=== PATIENT | female | born 1950 | race Hispanic/Latino ===

== ENCOUNTER 2018-12-26 23:12 | Emergency (ER) | payer MEDICARE, OTHER ==
[~2018-12-26 23:12] MED LIST: CARB1TAB23 PO; LEVO100T12 PO; METF500T7 PO; PRAV20TA4 PO; ROPINIROLE PO
[2018-12-26] MEDS ORDERED: OCTYL 2-CYANOACRYLATE 1 EACH TP ONE (23:45)
== END 2018-12-27 00:36 | disposition home or self-care (01) ==
LOC: EDH 23:12
DX: S01.01XA Laceration without foreign body of scalp, initial encounter (principal); E11.9 Type 2 diabetes mellitus without complications; E78.5 Hyperlipidemia, unspecified; E07.9 Disorder of thyroid, unspecified; Z88.6 Allergy status to analgesic agent; Z79.84 Long term (current) use of oral hypoglycemic drugs; W05.0XXA Fall from non-moving wheelchair, initial encounter; Y93.89 Activity, other specified; Y92.89 Other specified places as the place of occurrence of the external cause; Y99.8 Other external cause status
CPT/HCPCS: 12001; 70450

== ENCOUNTER 2019-03-16 17:08 | Observation (INO) | payer OTHER ==
[~2019-03-16] VITALS: Ht 160 cm; Wt 82.1 kg
[~2019-03-16 17:08] MED LIST changes: +METF500T20 PO; -METF500T7 PO
[2019-03-16] MEDS ORDERED: SODIUM CHLORIDE 0.9% 1000ML 2,000 ML IV ONE (17:47)
[2019-03-16 18:15] LABS: BASOPHILS % (AUTO) 0.3 % (0.0-5.0); HEMATOCRIT 37.5 % (36-48); LYMPHOCYTES % (AUTO) 4.3 % (21.0-51.0); MEAN CORPUSCULAR HEMOGLOBIN 28.7 pg (27.0-33.0); MEAN CORPUSCULAR HGB CONC 32.9 g/dL (32.0-36.0); MEAN CORPUSCULAR VOLUME 87.3 fL (79-99); MONOCYTES % (AUTO) 4.1 % (3.0-13.0); NEUTROPHILS % (AUTO) 91.3 % (40.0-77.0); PLATELET COUNT (AUTO) 240 K/uL (130-400); RED CELL DISTRIBUTION WIDTH 13.9 % (11.0-15.5); WHITE BLOOD COUNT (AUTO) 11.3 K/uL (4.8-10.8)
[2019-03-16 18:26] LABS: CARBON DIOXIDE 22 mmol/L (21-32); CHLORIDE 100 mmol/L (101-111); CREATININE 0.9 mg/dL (0.5-1.5); GLOMERULAR FILTR. RATE CALC 66 mL/min (>60); GLUCOSE,RANDOM 194 mg/dL (70-105); POTASSIUM 3.6 mmol/L (3.5-5.1); SODIUM SERUM 136 mmol/L (136-145); UREA NITROGEN, BLOOD 22 mg/dL (7-18)
[2019-03-16 18:27] LABS: INR 0.98 (0.85-1.15); PARTIAL THROMBOPLASTIN TIME 27.4 SEC (26.3-35.5); PROTHROMBIN TIME 10.3 SEC (9.6-11.6)
[2019-03-16 18:38] LABS: ALANINE AMINOTRANSFERASE 18 U/L (12-78); ALBUMIN 3.2 g/dL (3.5-5.0); ASPARTATE AMINOTRANSFERASE 15 U/L (10-37); BILIRUBIN,TOTAL 0.5 mg/dL (0.2-1.0); CREATINE KINASE, TOTAL 35 U/L (21-232); MYOGLOBIN 38 ng/mL (10-92); TOTAL PROTEIN, SERUM 6.7 g/dL (6.0-8.3); TROPONIN I < 0.04 ng/mL (0.00-0.06)
[2019-03-16] MEDS ORDERED: IOHEXOL-350 75 ML VIAL IV ONE (19:05)
[2019-03-16] MEDS ORDERED: SODIUM CHLORIDE 0.9% 50 ML IV ONE (19:27)
[2019-03-16] MEDS ORDERED: CEFTRIAXONE SODIUM 1 GM ONE (19:27)
[2019-03-16 19:58] LABS: APPEARANCE,URINE Clear (CLEAR); BILIRUBIN,URINE Negative (NEGATIVE); COLOR,URINE Yellow (YELLOW); GLUCOSE, URINE (UA) Negative (NEGATIVE); KETONES,URINE Negative (NEGATIVE); LEUKOCYTE ESTERASE ,URINE Moderate (NEGATIVE); NITRATE,URINE Negative (NEGATIVE); OCCULT BLOOD,URINE Negative (NEGATIVE); PROTEIN,URINE Negative (NEGATIVE); UROBILINOGEN,URINE 0.2 mg/dL (0.2-1.0)
[2019-03-16 20:09] LABS: BACTERIA,URINE Few /HPF (None Seen); MUCUS,URINE Few LPF (None Seen)
[2019-03-16] MEDS: ZOSYN 3.375GM+NS 50ML 50 ML IV SCH (21:34)
[2019-03-16] MEDS ORDERED: VANCOMYCIN 1.5 GM in SODIUM CHLORIDE 0.9% 250 ML IV SCH (21:45)
[2019-03-16] MEDS ORDERED: VANCOMYCIN 1GM+NS 250ML 250 ML IV SCH (21:45)
[2019-03-16] MEDS: SODIUM CHLORIDE 0.9% 1000ML 1,000 ML IV SCH (21:45)
[2019-03-16] MEDS ORDERED: VANCOMYCIN PROTOCOL PER PHARMACY IV SCH (21:45)
[2019-03-16] MEDS ORDERED: GLUCAGON 1MG KIT 1 MG ML IM PRN (21:45)
[2019-03-16] MEDS ORDERED: DEXTROSE 50%-WATER 50 ML DISP.SYRIN IV PRN (21:45)
[2019-03-16] MEDS ORDERED: SODIUM CHLORIDE 0.9% 1000ML 1,000 ML IV ONE (22:37)
[2019-03-16] MEDS ORDERED: ZOSYN 3.375GM+NS 50ML 50 ML IV ONE (22:53)
[2019-03-17] MEDS ORDERED: SODIUM CHLORIDE 0.9% 1000ML 1,000 ML IV ONE ×2 (01:27→09:52)
[2019-03-17] MEDS ORDERED: FLUMAZENIL 0.1MG/1ML 5ML VIAL IV ONE (03:46)
[2019-03-17] MEDS: ZOSYN 3.375GM+NS 50ML 50 ML IV SCH ×3 (05:00→21:12)
[2019-03-17 05:45] LABS: BASOPHILS % (AUTO) 0.3 % (0.0-5.0); EOSINOPHILS % (AUTO) 0.1 % (0.0-8.0); HEMATOCRIT 34.4 % (36-48); LYMPHOCYTES % (AUTO) 16.7 % (21.0-51.0); MEAN CORPUSCULAR HEMOGLOBIN 29.3 pg (27.0-33.0); MEAN CORPUSCULAR HGB CONC 33.7 g/dL (32.0-36.0); MONOCYTES % (AUTO) 8.8 % (3.0-13.0); NEUTROPHILS % (AUTO) 74.1 % (40.0-77.0); PLATELET COUNT (AUTO) 198 K/uL (130-400); RED BLOOD CELL COUNT(AUTO) 3.95 MIL/uL (4.00-5.50); RED CELL DISTRIBUTION WIDTH 13.8 % (11.0-15.5); WHITE BLOOD COUNT (AUTO) 5.9 K/uL (4.8-10.8)
[2019-03-17 05:56] LABS: CREATININE 0.7 mg/dL (0.5-1.5); MAGNESIUM 1.7 mg/dL (1.80-2.40); POTASSIUM 3.5 mmol/L (3.5-5.1)
[2019-03-17] MEDS ORDERED: ACETAMINOPHEN EXTRA STRENGTH 500 MG TABLET ONE (06:54)
[2019-03-17] MEDS ORDERED: ZOSYN 3.375GM+NS 50ML 50 ML IV ONE (07:56)
[2019-03-17] MEDS ORDERED: MAGNESIUM 2GM PREMIX 50ML 100 ML IV ONE (09:49)
--- NOTE | 2019-03-17 10:30 | NUR ---
DCP:HOME Sw met with pt and daughter Kim Guzmán [phone], whom lives with the pt. Pt has provider thru [employer] 36hrs a week to assist with ADLS, home management, meal prep and transport. pt has w/c and shower chair, no HH. PCP is Dr Irving and [facility] is pharm of choice. Denies dc needs. Plan is home Addendum: 03/17/19 at 1032 by JORDYN GARY SS Amended: Links added.
[2019-03-17 14:20] VITALS: BP 140/81
[2019-03-17 16:00] VITALS: BP 143/81
[2019-03-17] MEDS: INSULIN R PO SS1 SQ SCH ×4 (16:13→21:10)
[2019-03-17] MEDS: SODIUM CHLORIDE 0.9% 1000ML 1,000 ML IV SCH (17:45)
[2019-03-17] MEDS ORDERED: VANCOMYCIN 1.5 GM in SODIUM CHLORIDE 0.9% 250 ML IV SCH (18:00)
[2019-03-17] MEDS ORDERED: COMPOUND IV REFRIGERATED 1 EACH IVSOLN MISC PRN (18:15)
[2019-03-17 19:35] VITALS: BP 143/74
[2019-03-17] MEDS ORDERED: HYDR-3421 PO (20:01)
[2019-03-17] MEDS ORDERED: MELA5CAP PO (20:02)
[2019-03-17] MEDS ORDERED: GLIP5TAB11 PO (20:02)
[2019-03-17] MEDS: MELATONIN 5 MG PO SCH (21:00)
[2019-03-17] MEDS: SIMVASTATIN 20 MG TABLET PO SCH (21:12)
[2019-03-17] MEDS: HYDROXYZINE HCL 25 MG TABLET PO SCH (21:12)
[2019-03-17] MEDS: METFORMIN HCL 500 MG TAB.SR.24H PO SCH (21:15)
[2019-03-17 23:35] VITALS: BP 141/79
[2019-03-18] VITALS (7 sets, daily range): BP systolic 135–148; BP diastolic 63–80
[2019-03-18] MEDS: SODIUM CHLORIDE 0.9% 1000ML 1,000 ML IV SCH ×2 (02:20→13:45)
[2019-03-18] MEDS ORDERED: MAGNESIUM 2GM PREMIX 50ML 50 ML IV PRN (02:30)
[2019-03-18] MEDS ORDERED: POTASSIUM CHLORIDE 20MEQ/100ML 100 ML IV PRN (02:30)
[2019-03-18] MEDS ORDERED: LIDOCAINE HCL-MPF 1% 2ML VIAL IV PRN (02:30)
[2019-03-18] MEDS ORDERED: POTASSIUM CHLORIDE 10% ELIXIR 20 MEQ/15 ML UDCUP PO PRN (02:30)
[2019-03-18] MEDS: ZOSYN 3.375GM+NS 50ML 50 ML IV SCH ×3 (04:49→21:10)
[2019-03-18 05:34] LABS: BASOPHILS % (AUTO) 0.3 % (0.0-5.0); EOSINOPHILS % (AUTO) 0.3 % (0.0-8.0); HEMATOCRIT 32.3 % (36-48); LYMPHOCYTES % (AUTO) 27.8 % (21.0-51.0); MEAN CORPUSCULAR HEMOGLOBIN 29.4 pg (27.0-33.0); MEAN CORPUSCULAR HGB CONC 33.8 g/dL (32.0-36.0); MEAN CORPUSCULAR VOLUME 87.2 fL (79-99); MONOCYTES % (AUTO) 10.8 % (3.0-13.0); NEUTROPHILS % (AUTO) 60.8 % (40.0-77.0); NUCLEATED RED BLOOD CELLS 0.1 % (0.0-0.19); PLATELET COUNT (AUTO) 184 K/uL (130-400); RED BLOOD CELL COUNT(AUTO) 3.71 MIL/uL (4.00-5.50); RED CELL DISTRIBUTION WIDTH 13.8 % (11.0-15.5); WHITE BLOOD COUNT (AUTO) 5.2 K/uL (4.8-10.8)
[2019-03-18 05:50] LABS: ALBUMIN 2.5 g/dL (3.5-5.0); BILIRUBIN,TOTAL 0.4 mg/dL (0.2-1.0); CREATININE 0.7 mg/dL (0.5-1.5); MAGNESIUM 1.9 mg/dL (1.80-2.40); POTASSIUM 3.3 mmol/L (3.5-5.1); TOTAL PROTEIN, SERUM 5.5 g/dL (6.0-8.3)
[2019-03-18] MEDS: INSULIN R PO SS1 SQ SCH ×4 (05:50→21:11)
--- NOTE | 2019-03-18 06:03 | NUR ---
KALPESH HARTMANN ROUNDED: Seen and examined with order to do MRI of the Brain. Pt complains of headache as per report.
[2019-03-18] MEDS: LEVOTHYROXINE 100 MCG TABLET PO SCH (06:52)
[2019-03-18] MEDS: POTASSIUM CHLORIDE 20 MEQ ERTAB PO PRN ×3 (06:53→17:22)
[2019-03-18] MEDS: METFORMIN HCL 500 MG TAB.SR.24H PO SCH ×2 (08:46→17:21)
[2019-03-18] MEDS ORDERED: GADODIAMIDE 10 MMOL/20 ML VIAL IV ONE (08:55)
--- NOTE | 2019-03-18 11:23 | NUR ---
DYSPHAGIA DIANA PETERS. MILD OROPHARYNGEAL DYSPHAGIA. RECOMMEND REGULAR, THIN LIQUIDS; PILLS WHOLE WITH COMPENSATORY STRATEGIES. Addendum: 03/18/19 at 1133 by BISI PFEIFFER, [facility] Amended: Links added.
[2019-03-18] MEDS: GLIPIZIDE 5 MG TABLET PO SCH ×2 (13:08→17:22)
--- NOTE | 2019-03-18 15:37 | NUR ---
RD NOTIFICATION DX: UTI, TACHYCARDIA. DIET: 75GMCCD. PO INTAKT 100% AND HAS GREAT APPETITE. SKIN INTACT, NO EDEMA. NO NAUSEA, VOMITING OR DIARRHEA NOTED. NO FOOD ALLERGIES NOTED. LBM: 03/18 PER PT. PT WAS EATING LUNCH DURING TIME OF VISIT AND WAS CHOKING/COUGHING WITH FOOD AND LIQUIDS. DAUGHTER MENTIONED THAT PT HAS DIFFICULTY SWALLOWING/CHEWING AT TIMES BUT SAID IT IS NORMAL FOR THE PT. RD RECOMMENDED A TEACHING MUSIC LESSONS EVAL. RD OFFERED TO ADD MECHANICAL SOFT/CHOPPED TO DIET ORDER AND PT AGREED. RD RECOMMENDS TO CONTINUE CURRENT DIET ADD MECHANICAL SOFT/CHOPPED TO DIET ORDER RD WILL CONTINUE TO MONITOR AND FOLLOW UP NEEDED. THANK YOU. Addendum: 03/18/19 at [address] RD Amended: Links added.
[2019-03-18] MEDS ORDERED: VANCOMYCIN 1.25 GM in SODIUM CHLORIDE 0.9% 250 ML IV SCH (18:00)
[2019-03-18] MEDS: HYDROXYZINE HCL 25 MG TABLET PO SCH (21:09)
[2019-03-18] MEDS: SIMVASTATIN 20 MG TABLET PO SCH (21:09)
[2019-03-18] MEDS: MELATONIN 5 MG PO SCH (21:10)
[2019-03-19] MEDS: SODIUM CHLORIDE 0.9% 1000ML 1,000 ML IV SCH ×2 (01:14→09:45)
[2019-03-19 03:20] VITALS: BP 145/82
[2019-03-19] MEDS: ZOSYN 3.375GM+NS 50ML 50 ML IV SCH (05:38)
[2019-03-19] MEDS: LEVOTHYROXINE 100 MCG TABLET PO SCH (05:38)
[2019-03-19] MEDS: INSULIN R PO SS1 SQ SCH ×2 (05:39→11:30)
--- NOTE | 2019-03-19 06:08 | NUR ---
KALPESH HARTMANN ROUNDED: Seen and talked with pt and daughter. Discharge order and medication prescription made. Doctor informed the data analyst report writer that if condition changed or pt wanted to stay , just let the pt stay.
[2019-03-19 07:54] VITALS: BP 145/83
[2019-03-19] MEDS: METFORMIN HCL 500 MG TAB.SR.24H PO SCH (09:25)
[2019-03-19 12:03] VITALS: BP 136/73
[2019-03-19] MEDS: GLIPIZIDE 5 MG TABLET PO SCH (12:19)
--- NOTE | 2019-03-19 13:06 | NUR ---
PATIENT DISCHARGE INSTRUCTIONS GIVEN. ALL QUESTIONS ANSWERED. IV DISCONTINUED WITH INNER CANNULA INTACT. PATIENT INSTUCTIONS GIVEN.
== END 2019-03-19 12:25 | disposition home or self-care (01) ==
LOC: EDH 17:08 → EDHIP 20:45 → INTOOBSV 20:45 → 3BH 03-17 14:28
PROVIDERS: ADMIT Family Medicine; ATTEND Family Medicine
DX: N39.0 Urinary tract infection, site not specified (principal); E87.6 Hypokalemia; E83.42 Hypomagnesemia; E11.9 Type 2 diabetes mellitus without complications; E03.9 Hypothyroidism, unspecified; R51 Headache; I10 Essential (primary) hypertension; G20 Parkinson's disease; R29.6 Repeated falls; D72.829 Elevated white blood cell count, unspecified; Z88.8 Allergy status to other drugs, medicaments and biological substances; Z79.4 Long term (current) use of insulin; Z87.440 Personal history of urinary (tract) infections; Z79.899 Other long term (current) drug therapy; Z79.01 Long term (current) use of anticoagulants
CPT/HCPCS: 36415 ×4; 70553; 71045; 74177; 80048; 80053 ×2; 81001; 82550; 82948 ×9; 83605 ×2; 83735 ×2; 83874; 84132; 84145; 84484; 85025 ×3; 85610; 85730; 87040 ×2; 87077; 87088; 87186; 87804 ×2; 87880; 92610; 93005; 96365; 96366 ×3; 96368; 96372 ×2; 99285; A9579; G0378 ×64; J0696; J1815 ×2; J2543 ×8; J3370 ×4; J3475; J7030 ×9; Q9967; J3490

== ENCOUNTER 2020-10-30 16:38 | Emergency (ER) | payer OTHER ==
[~2020-10-30 16:38] MED LIST changes: -CARB1TAB23 PO; +GLIP5TAB11 PO; +HYDR-3421 PO; +MELA5CAP PO; +METF-910 PO; -METF500T20 PO; -ROPINIROLE PO
[2020-10-30] MEDS ORDERED: LIDOCAINE 5% TOPICAL PATCH TP ONE (17:38)
[2020-10-30] MEDS ORDERED: MORPHINE SULFATE 2 MG/ML 1ML SYG ONE (17:38)
[2020-10-30 18:44] LABS: APPEARANCE,URINE CLOUDY (CLEAR); BILIRUBIN,URINE NEGATIVE (NEGATIVE); COLOR,URINE YELLOW (YELLOW); GLUCOSE, URINE (UA) >=1000 mg/dL (NEGATIVE); KETONES,URINE 5 mg/dL (NEGATIVE); LEUKOCYTE ESTERASE ,URINE MODERATE (NEGATIVE); NITRATE,URINE NEGATIVE (NEGATIVE); OCCULT BLOOD,URINE MODERATE (NEGATIVE); PH,URINE 5.5 (5.0-8.0); PROTEIN,URINE 30 mg/dL (NEGATIVE); UROBILINOGEN,URINE 0.2 mg/dL (0.2-1.0)
[2020-10-30 19:43] LABS: WBC,URINE >100 /HPF (0-1)
[2020-10-30 19:44] LABS: BACTERIA,URINE Few /HPF (None Seen); YEAST,URINE BUDDING Few /HPF (None Seen)
[2020-10-30 19:45] LABS: SQUAMOUS EPITHELIAL CELL,UR Rare /HPF (0-2); TRANSITIONAL EPI CELLS,URINE Rare /HPF (None Seen)
[2020-10-30] MEDS ORDERED: NITROFURANTOIN MONOHYD/M-CRYST 100 MG CAPSULE PO ONE (20:08)
== END 2020-10-30 20:48 | disposition home or self-care (01) ==
LOC: EDH 16:38
DX: S22.41XA Multiple fractures of ribs, right side, initial encounter for closed fracture (principal); N30.00 Acute cystitis without hematuria; E11.9 Type 2 diabetes mellitus without complications; E78.5 Hyperlipidemia, unspecified; E07.9 Disorder of thyroid, unspecified; Z88.6 Allergy status to analgesic agent; W18.39XA Other fall on same level, initial encounter; Y93.89 Activity, other specified; Y92.89 Other specified places as the place of occurrence of the external cause; Y99.8 Other external cause status
CPT/HCPCS: 70450; 71250; 72125; 81001; 87077; 87088; 87186; 96372

== ENCOUNTER 2021-10-23 23:03 | Emergency (ER) | payer OTHER ==
[~2021-10-23] VITALS: Ht 160 cm; Wt 81.6 kg
[2021-10-24] VITALS: BP 156/74
== END 2021-10-24 02:50 | disposition home or self-care (01) ==
LOC: EDH 23:03
DX: S00.83XA Contusion of other part of head, initial encounter (principal); S50.02XA Contusion of left elbow, initial encounter; E11.9 Type 2 diabetes mellitus without complications; E78.00 Pure hypercholesterolemia, unspecified; Z88.6 Allergy status to analgesic agent; Z88.8 Allergy status to other drugs, medicaments and biological substances; Z79.899 Other long term (current) drug therapy; Z79.84 Long term (current) use of oral hypoglycemic drugs; Z98.890 Other specified postprocedural states; W18.09XA Striking against other object with subsequent fall, initial encounter; Y93.89 Activity, other specified; Y92.89 Other specified places as the place of occurrence of the external cause; Y99.8 Other external cause status
CPT/HCPCS: 70450; 72125; 73080

== ENCOUNTER → 2022-08-01 | Outpatient (CLI) | payer OTHER ==
[~2022-08-01] MED LIST changes: +DIATR MEGLU/DIATRIZOATE SODIUM 30 ML BOTTLE ONE
== END | disposition home or self-care (01) ==
LOC: RAH 11:09
PROVIDERS: ATTEND Internal Medicine
DX: K94.23 Gastrostomy malfunction (principal); M47.815 Spondylosis without myelopathy or radiculopathy, thoracolumbar region
CPT/HCPCS: 74018; Q9963

== ENCOUNTER → 2022-08-15 | Outpatient (CLI) | payer OTHER ==
[~2022-08-15] MED LIST changes: -DIATR MEGLU/DIATRIZOATE SODIUM 30 ML BOTTLE ONE
== END | disposition home or self-care (01) ==
LOC: RAH 12:14
PROVIDERS: ATTEND Internal Medicine
DX: R13.12 Dysphagia, oropharyngeal phase (principal); R63.30 Feeding difficulties, unspecified; Z93.1 Gastrostomy status
CPT/HCPCS: 74230; 92611

== ENCOUNTER 2022-10-26 16:16 | Emergency (ER) | payer OTHER ==
[~2022-10-26] VITALS: Ht 152.4 cm; Wt 64.0 kg
[2022-10-26 18:53] VITALS: BP 125/74
== END 2022-10-26 19:31 | disposition home or self-care (01) ==
LOC: EDH 16:16
DX: S09.8XXA Other specified injuries of head, initial encounter (principal); E11.9 Type 2 diabetes mellitus without complications; E78.00 Pure hypercholesterolemia, unspecified; M47.812 Spondylosis without myelopathy or radiculopathy, cervical region; Z79.84 Long term (current) use of oral hypoglycemic drugs; Z79.899 Other long term (current) drug therapy; Z88.6 Allergy status to analgesic agent; Z88.7 Allergy status to serum and vaccine; Z88.8 Allergy status to other drugs, medicaments and biological substances; W07.XXXA Fall from chair, initial encounter; Y93.01 Activity, walking, marching and hiking; Y92.89 Other specified places as the place of occurrence of the external cause; Y99.8 Other external cause status
CPT/HCPCS: 70450; 72125

== ENCOUNTER → 2023-01-08 | Outpatient (CLI) | payer OTHER ==
[~2023-01-08] MED LIST changes: +AMOX400S5 PEG; +CARB-38 PO; +FLUC100T12 PO; +FURO20TA6 PO; +LACT1CAP79 PO; +LEVO100C4 PO; +MELA5TAB50 PO; +METF-444 PO; +POLY17PO4 GT; +Sulfamethox-Tmp Ds 800/160 Tab PEG
== END | disposition home or self-care (01) ==
LOC: WHH 09:44
PROVIDERS: ATTEND Nurse Practitioner Family
DX: L89.154 Pressure ulcer of sacral region, stage 4 (principal); L89.312 Pressure ulcer of right buttock, stage 2; E11.65 Type 2 diabetes mellitus with hyperglycemia; I11.0 Hypertensive heart disease with heart failure; I50.32 Chronic diastolic (congestive) heart failure; G23.9 Degenerative disease of basal ganglia, unspecified; J96.10 Chronic respiratory failure, unspecified whether with hypoxia or hypercapnia; M40.203 Unspecified kyphosis, cervicothoracic region; G20 Parkinson's disease; E78.00 Pure hypercholesterolemia, unspecified; Z79.84 Long term (current) use of oral hypoglycemic drugs; Z79.899 Other long term (current) drug therapy
CPT/HCPCS: 11042; 87070; 87077 ×2; 87186 ×2; 11045; A6197; A4450; A6260

== ENCOUNTER → 2023-01-14 | Outpatient (CLI) | payer OTHER ==
[~2023-01-14] MED LIST changes: +BALSAM PERU/CASTOR OIL 60 GM TUBE TP ONE; +LIDOCAINE HCL 4% LTA SOL 4 ML VIAL TP ONE
== END | disposition home or self-care (01) ==
LOC: WHH 12:27
PROVIDERS: ATTEND Nurse Practitioner Family
DX: L89.154 Pressure ulcer of sacral region, stage 4 (principal); L89.312 Pressure ulcer of right buttock, stage 2; E11.65 Type 2 diabetes mellitus with hyperglycemia; E03.9 Hypothyroidism, unspecified; I11.0 Hypertensive heart disease with heart failure; I50.32 Chronic diastolic (congestive) heart failure; J96.10 Chronic respiratory failure, unspecified whether with hypoxia or hypercapnia; G23.9 Degenerative disease of basal ganglia, unspecified; M40.203 Unspecified kyphosis, cervicothoracic region; G20 Parkinson's disease; E78.00 Pure hypercholesterolemia, unspecified; Z79.84 Long term (current) use of oral hypoglycemic drugs; Z79.899 Other long term (current) drug therapy
CPT/HCPCS: G0463; A6196; A6197; A6260

== ENCOUNTER → 2023-01-28 | Outpatient (CLI) | payer OTHER ==
[~2023-01-28] MED LIST changes: -BALSAM PERU/CASTOR OIL 60 GM TUBE TP ONE
== END | disposition home or self-care (01) ==
LOC: WHH 09:46
PROVIDERS: ATTEND Nurse Practitioner Family
DX: L89.154 Pressure ulcer of sacral region, stage 4 (principal); L89.312 Pressure ulcer of right buttock, stage 2; E11.65 Type 2 diabetes mellitus with hyperglycemia; E03.9 Hypothyroidism, unspecified; I11.0 Hypertensive heart disease with heart failure; I50.32 Chronic diastolic (congestive) heart failure; J96.10 Chronic respiratory failure, unspecified whether with hypoxia or hypercapnia; G23.9 Degenerative disease of basal ganglia, unspecified; M40.203 Unspecified kyphosis, cervicothoracic region; G20 Parkinson's disease; E78.00 Pure hypercholesterolemia, unspecified; Z79.84 Long term (current) use of oral hypoglycemic drugs; Z79.899 Other long term (current) drug therapy
CPT/HCPCS: 11042; 97605; A6248

== ENCOUNTER → 2023-02-18 | Outpatient (CLI) | payer OTHER | END | disposition home or self-care (01) | LOC: WHH 09:54 | PROVIDERS: ATTEND Nurse Practitioner Family | DX: L89.154 Pressure ulcer of sacral region, stage 4 (principal); L89.312 Pressure ulcer of right buttock, stage 2; E11.65 Type 2 diabetes mellitus with hyperglycemia; E03.9 Hypothyroidism, unspecified; I11.0 Hypertensive heart disease with heart failure; I50.32 Chronic diastolic (congestive) heart failure; J96.10 Chronic respiratory failure, unspecified whether with hypoxia or hypercapnia; G23.9 Degenerative disease of basal ganglia, unspecified; M40.203 Unspecified kyphosis, cervicothoracic region; G20 Parkinson's disease; E78.00 Pure hypercholesterolemia, unspecified; Z79.84 Long term (current) use of oral hypoglycemic drugs; Z79.899 Other long term (current) drug therapy | CPT/HCPCS: 97605; A6248; A6021; A4450 ==

== ENCOUNTER → 2023-03-18 | Outpatient (CLI) | payer OTHER ==
[~2023-03-18] MED LIST changes: -GLIP5TAB11 PO; +GLIP5TAB15 PO; -LIDOCAINE HCL 4% LTA SOL 4 ML VIAL TP ONE
== END | disposition home or self-care (01) ==
LOC: WHH 09:41
PROVIDERS: ATTEND Nurse Practitioner Family
DX: L89.154 Pressure ulcer of sacral region, stage 4 (principal); L89.312 Pressure ulcer of right buttock, stage 2; L89.326 Pressure-induced deep tissue damage of left buttock; E11.65 Type 2 diabetes mellitus with hyperglycemia; E03.9 Hypothyroidism, unspecified; I11.0 Hypertensive heart disease with heart failure; I50.32 Chronic diastolic (congestive) heart failure; J96.10 Chronic respiratory failure, unspecified whether with hypoxia or hypercapnia; G23.9 Degenerative disease of basal ganglia, unspecified; M40.203 Unspecified kyphosis, cervicothoracic region; G20.A1 Parkinson's disease without dyskinesia, without mention of fluctuations; E78.00 Pure hypercholesterolemia, unspecified; Z79.84 Long term (current) use of oral hypoglycemic drugs; Z79.899 Other long term (current) drug therapy
CPT/HCPCS: 97605; A6212